=== PATIENT | male | born 1990 | race Caucasian/White ===

== ENCOUNTER 2018-10-16 22:38 | Emergency (ER) | payer OTHER ==
[~2018-10-16] VITALS: Ht 172.7 cm; Wt 97.5 kg
[~2018-10-16 22:38] MED LIST: MOTRIN600 MG PO; MOTRIN800 MG PO
[2018-10-17] MEDS ORDERED: Motrin,Rufen800 MG PO (01:14)
== END 2018-10-17 02:13 | disposition home or self-care (01) ==
LOC: ED 22:38
DX: S93.401A Sprain of unspecified ligament of right ankle, initial encounter (principal); M79.671 Pain in right foot; W20.8XXA Other cause of strike by thrown, projected or falling object, initial encounter; Y93.89 Activity, other specified; Y92.096 Garden or yard of other non-institutional residence as the place of occurrence of the external cause; Y99.8 Other external cause status

== ENCOUNTER → 2021-04-18 | Outpatient (CLI) | payer OTHER ==
[~2021-04-18] MED LIST changes: +Motrin,Rufen800 MG PO
== END | disposition home or self-care (01) ==
LOC: RAD 17:59
PROVIDERS: ATTEND Nurse Practitioner Family
DX: M54.42 Lumbago with sciatica, left side (principal)

== ENCOUNTER 2022-04-21 18:35 | Emergency (ER) | payer OTHER ==
[~2022-04-21] VITALS: Ht 172.7 cm; Wt 104.3 kg
[2022-04-21] MEDS ORDERED: NAPROSYN500 MG PO (22:08)
== END 2022-04-21 22:12 | disposition home or self-care (01) ==
LOC: ED 18:35
DX: S23.8XXA Sprain of other specified parts of thorax, initial encounter (principal); X50.1XXA Overexertion from prolonged static or awkward postures, initial encounter; Y93.89 Activity, other specified; Y92.89 Other specified places as the place of occurrence of the external cause; Y99.9 Unspecified external cause status

== ENCOUNTER → 2024-12-28 | Emergency (ER) | payer OTHER ==
[~2024-12-28] VITALS: Ht 172.7 cm; Wt 108.9 kg
[~2024-12-28] MED LIST changes: +Bacitracin Zinc 14 GM TUBE T ONE; +CEPHALEXIN 500 MG CAP PO ONE; +CEPHALEXIN500 M1 PO; +Lidocaine Hydrochloride 2% 10 ML AMP SC ONE; +NAPROSYN500 MG PO; +Tdap Vaccine 0.5 ML SYR (Adult Vaccine) IM ONE
== END ==
LOC: ED 19:25
DX: S61.011A Laceration without foreign body of right thumb without damage to nail, initial encounter (principal); Z79.899 Other long term (current) drug therapy; W26.8XXA Contact with other sharp object(s), not elsewhere classified, initial encounter; Y93.89 Activity, other specified; Y92.89 Other specified places as the place of occurrence of the external cause; Y99.8 Other external cause status